=== PATIENT | male | born 1990 | race Caucasian/White ===

== ENCOUNTER 2021-06-18 14:29 | Outpatient (CLI) | payer OTHER | END 2021-06-18 14:38 | disposition home or self-care (01) | LOC: RAD 14:29 | PROVIDERS: ATTEND Orthopaedic Surgery | DX: M25.532 Pain in left wrist (principal); M79.642 Pain in left hand ==

== ENCOUNTER 2022-12-30 11:49 | Outpatient (CLI) | payer OTHER | END 2022-12-30 11:56 | disposition home or self-care (01) | LOC: RAD 11:49 | PROVIDERS: ATTEND Orthopaedic Surgery | DX: Z76.89 Persons encountering health services in other specified circumstances (principal) ==

== ENCOUNTER 2022-12-30 12:11 | Outpatient (CLI) | payer OTHER | END 2022-12-30 12:14 | disposition home or self-care (01) | LOC: EKG 12:11 | PROVIDERS: ATTEND Orthopaedic Surgery | DX: I49.9 Cardiac arrhythmia, unspecified (principal); I10 Essential (primary) hypertension ==

== ENCOUNTER 2023-01-01 07:55 | Outpatient (CLI) | payer OTHER | END 2023-01-01 08:02 | disposition home or self-care (01) | LOC: LAB 07:55 | PROVIDERS: ATTEND Orthopaedic Surgery | DX: D64.9 Anemia, unspecified (principal); D68.8 Other specified coagulation defects; N39.0 Urinary tract infection, site not specified; E88.9 Metabolic disorder, unspecified; Z22.322 Carrier or suspected carrier of Methicillin resistant Staphylococcus aureus ==

== ENCOUNTER 2023-01-15 09:57 | Outpatient (CLI) | payer OTHER | END 2023-01-15 09:58 | disposition home or self-care (01) | LOC: LAB 09:57 | PROVIDERS: ATTEND Orthopaedic Surgery | DX: D64.89 Other specified anemias (principal) ==